=== PATIENT | female | born 1960 | race Two or more races ===

== ENCOUNTER 2019-03-19 09:35 | Inpatient (IN) | payer OTHER ==
[~2019-03-19] VITALS: Ht 165.1 cm; Wt 99.3 kg
[2019-03-19] MEDS ORDERED: BACITRACIN 50000 UNITS/VIAL ONE (09:40)
[2019-03-19] MEDS ORDERED: ACETAMINOPHEN 325 MG TABLET ONE (11:24)
[2019-03-19] MEDS ORDERED: CELECOXIB 100 MG CAPSULE ONE (11:24)
[2019-03-19] MEDS ORDERED: oxyCODONE HCL SR 10MG TAB.SR.12H PO ONE (11:24)
[2019-03-19] MEDS ORDERED: MIDAZOLAM HCL 2 MG/2ML VIAL ONE (14:53)
[2019-03-19] MEDS ORDERED: FENTANYL PF 100MCG/2ML AMPUL ONE (14:53)
[2019-03-19] MEDS ORDERED: MORPHINE SULFATE/PF 10 MG/10ML (1MG/ML) AMPUL ONE (14:53)
[2019-03-19] MEDS ORDERED: BUPIVACAINE 0.5 % PF 150 MG/30 ML VIAL ONE (14:54)
[2019-03-19] MEDS ORDERED: TRANEXAMIC ACID 3,000 MG in SODIUM CHLORIDE IRRIG SOLUTION 70 ML IR ONE (16:30)
[2019-03-19] MEDS ORDERED: HYDROMORPHONE 1 MG/1 ML DISP.SYRIN IV PRN (17:00)
[2019-03-19] MEDS ORDERED: HYDROCODONE/APAP 5/325MG 1 EACH TABLET PO PRN (17:00)
[2019-03-19] MEDS ORDERED: ACETAMINOPHEN 325 MG TABLET PO PRN (17:00)
[2019-03-19] MEDS ORDERED: ONDANSETRON HCL/PF 4 MG/2 ML VIAL IVP PRN (17:00)
[2019-03-19] MEDS ORDERED: DOCUSATE SODIUM 250 MG CAPSULE PO PRN (17:00)
[2019-03-19] MEDS ORDERED: IV 1/2NS 1000 ML 1,000 ML IV PRN (17:00)
[2019-03-19] MEDS ORDERED: NALOXONE HCL 0.4 MG/ML AMPUL ONE (17:16)
[2019-03-19] MEDS ORDERED: KETOROLAC TROMETHAMINE INJ 30 MG/ML VIAL IV ONE (18:00)
[2019-03-19] MEDS ORDERED: diphenhydrAMINE HCL ELIX 25 MG/10 ML UDC PO PRN (18:00)
[2019-03-19] MEDS ORDERED: NALOXONE HCL 0.4 MG/ML AMPUL IV PRN (18:00)
--- NOTE | 2019-03-19 19:30 | NUR ---
ENRIQUE MS OPENING NOTES RECEIVED PATIENT IN BED AWAKE, ALERT AND ORIENTED X4, VERBALLY RESPONSIVE, ABLE TO MAKE NEEDS KNOWN. FAMILY AT BEDSIDE. PATIENT IS S/P LEFT HIP ARTHROPLASTY. BREATHING EVEN AND UNLABORED. NO SOB NOTED. ON 2LPM OXYGEN VIA NC. CURRENTLY WITH NO COMPLAINTS OF PAIN OR DISCOMFORT. NO FACIAL GRIMACING. IV ON LEFT WRIST INTACT AND PATENT. SKIN DRY AND WARM TO TOUCH. AFEBRILE. DRESSING ON THE LEFT HIP DRY AND INTACT. ABDUCTOR PILLOW ON. ALL OTHER NEEDS MET, SAFETY MEASURES IN PLACE. CALL LIGHT WITHIN REACH. WILL CONTINUE TO MONITOR. Addendum: 03/20/19 at 5076 by PAVAN FLETCHER RN CORRECTION: PATIENT IS TELE.
[2019-03-19] MEDS ORDERED: ONDANSETRON HCL/PF 4 MG/2 ML VIAL IVP ONE (19:35)
[2019-03-19 20:00] VITALS: BP 109/67
[2019-03-19] MEDS ORDERED: CLONIDINE HCL 0.1 MG TABLET PO PRN (20:00)
[2019-03-19] MEDS ORDERED: HYDROMORPHONE 1 MG/1 ML DISP.SYRIN SQ PRN (20:00)
[2019-03-19] MEDS ORDERED: diphenhydrAMINE HCL 25 MG CAPSULE PO PRN (20:00)
[2019-03-19] MEDS ORDERED: LORAZEPAM 1 MG TABLET PO PRN (20:00)
[2019-03-19] MEDS ORDERED: MAG HYDROX/AL HYDROX/SIMETH 30 ML UDC PO PRN (20:00)
[2019-03-19] MEDS ORDERED: IV D5/ 0.9% NACL 1,000 ML IV ONE (20:00)
[2019-03-19] MEDS: FAMOTIDINE (20 MG) 20 MG TABLET PO SCH (20:27)
--- NOTE | 2019-03-19 20:30 | NUR ---
HEAD CORRECTION OFFICER NOTES OFFERED PATIENT PAIN MEDICATION BUT PATIENT REFUSED. PER PATIENT, SHE DOES NOT FEEL PAIN RIGHT NOW AND SHE WILL CALL WHEN SHE DOES. INFORMED PATIENT THAT SHE NEEDS TO CALL RN WHEN SHE FEELS EVEN THE SLIGHTEST OF PAIN - PATIENT VERBALIZED UNDERSTANDING. WILL CONTINUE TO MONITOR.
[2019-03-19] MEDS ORDERED: SENNOSIDES 8.6 MG TABLET PO PRN (22:00)
[2019-03-19] MEDS ORDERED: ZOLPIDEM TARTRATE 5 MG TABLET PO PRN (22:00)
--- NOTE | 2019-03-19 22:30 | NUR ---
OBSERVER GRAVITY PROSPECTING NOTES ATTEMPTED TO DO SKIN ASSESSMENT ON PATIENT - NO WOUNDS FOUND OTHER THAN A RIGHT UPPER ARM REDNESS/SCRATCH. PATIENT UNABLE TO TURN TO HER SIDE BECAUSE SHE IS S/P LEFT HIP REPLACEMENT. PER PATIENT, SHE DOES NOT WANT TO MOVE UNTIL SEEN BY PT.
[2019-03-19] MEDS ORDERED: ATEN25TA PO (23:19)
[2019-03-19] MEDS ORDERED: HYDR25TA4 PO (23:19)
[2019-03-20] VITALS: BP 112/63
[2019-03-20] MEDS: ANCEF 1 GM/50 ML D5W IV SCH ×4 (00:18→08:28)
--- NOTE | 2019-03-20 02:16 | NUR ---
RUSSIAN HISTORY PROFESSOR NOTES OFFERED PATIENT PAIN MEDICATION AGAIN BUT PATIENT REFUSED. PER PATIENT, SHE DOES NOT FEEL PAIN RIGHT NOW AND SHE WILL CALL WHEN SHE DOES. WILL CONTINUE TO MONITOR.
[2019-03-20 04:00] VITALS: BP 142/85
--- NOTE | 2019-03-20 06:27 | NUR ---
HEALTH INFORMATION CLERK CLOSING NOTES PATIENT RESTING IN BED. NO ACUTE CHANGES THROUGHOUT SHIFT. BREATHING EVEN AND UNLABORED. NO SOB NOTED. CURRENTLY WITH NO COMPLAINTS OF PAIN OR DISCOMFORT. NO FACIAL GRIMACING. IV ON LEFT WRIST INTACT AND PATENT. DRESSING ON THE LEFT HIP DRY AND INTACT. ABDUCTOR PILLOW ON. ZHOU CATH INTACT AND DRAINING. KEPT CLEAN DRY AND COMFORTABLE. ALL OTHER NEEDS MET, SAFETY MEASURES IN PLACE. CALL LIGHT WITHIN REACH. WILL ENDORSE TO ONCOMING NURSE FOR ROBER.
--- NOTE | 2019-03-20 07:12 | NUR ---
ADJUNCT WRITING INSTRUCTOR NOTES RECEIVED A CALL FROM DR. HARDING AND INQUIRED HOW THE PATIENT WAS THROUGHOUT THE NIGHT. INFORMED DR. HARDING THAT THE PATIENT WAS VERY PLEASANT AND DID NOT ASK FOR PAIN MEDICATION. ALSO INFORMED HIM PATIENT REFUSED PAIN MEDICATION WHEN OFFERED. INFORMED DR. HARDING THAT HE PUT IN A ONE TIME ORDER FOR PATIENT'S D5NS BUT PATIENT INSISTS THAT SHE NEEDS ITS BECAUSE IT HAS MADE HER FEEL BETTER THROUGHOUT OUT THE NIGHT. PER DR. HARDING OK TO CONTINUE TO PATIENT'S IVF: D5NS @ 125ML/HR. ORDER NOTED AND CARRIED OUT.
[2019-03-20] MEDS ORDERED: IV D5/ 0.9% NACL 1,000 ML IV PRN (07:30)
--- NOTE | 2019-03-20 07:34 | NUR ---
SLEEP LAB TECHNICIAN OPENING NOTES RECEIVED PT LAYING IN BED WITH HOB SLIGHTLY ELEVATED. PT IS A/O X4, AFEBRILE. RESPIRATIONS ARE EVEN AND UNLABORED, NOT IN ANY ACUTE DISTRESS NOTED. PT DENIES ANY CHEST PAIN, SOB, N/V. PT STATES SHE IS IN PAIL W/ PL 5/10 BUT DOES NOT WANT PAIN MEDICATION AT THIS TIME. IV SITE TO LEFT WRIST INTACT, NO INFILTRATION NOTED. DRESSING KEPT CLEAN AND DRY. INSTRUCTED PT TO USE CALL LIGHT WHEN ASSISTANCE IS NEEDED, CALL LIGHT IS LEFT WITHIN REACH. WILL MONITOR THROUGHOUT SHIFT FOR CONTINUITY OF CARE.
[2019-03-20 08:00] VITALS: BP 102/58
[2019-03-20] MEDS: DOCUSATE SODIUM 100 MG CAPSULE PO SCH ×2 (08:28→16:40)
[2019-03-20] MEDS: FAMOTIDINE (20 MG) 20 MG TABLET PO SCH ×2 (08:28→21:00)
[2019-03-20 08:35] VITALS: BP 102/58
[2019-03-20] MEDS: ATENOLOL 25 MG TABLET PO SCH (09:00)
[2019-03-20] MEDS: HYDROCHLOROTHIAZIDE 25 MG TABLET PO SCH (09:00)
--- NOTE | 2019-03-20 09:00 | NUR ---
CHAIN PEGGER NOTES-- PT SEEN AND EXAMINED BY ROSA BELLO WITH FACILITY MAINTENANCE MECHANIC STUDENT BEN.
[2019-03-20] MEDS: oxyCODONE IR immediate release 5 MG PO PRN ×3 (09:13→21:35)
[2019-03-20 09:25] LABS: BASOPHILS % (AUTO) 0.4 % (0.0-2.0); EOSINOPHILS % (AUTO) 0.5 % (0.0-6.0); HEMATOCRIT 35 % (33-45); HEMOGLOBIN 11.8 g/dL (11.5-14.8); LYMPHOCYTES # (AUTO) 0.8 /CMM (0.8-4.8); LYMPHOCYTES % (AUTO) 18.3 % (20.0-44.0); MEAN CORPUSCULAR HGB CONC 33 g/dl (31.0-36.0); MEAN CORPUSCULAR VOLUME 84 fL (82-100); MONOCYTES # (AUTO) 0.3 /CMM (0.1-1.30); MONOCYTES % (AUTO) 7.2 % (2.0-12.0); NEUTROPHILS # (AUTO) 3.3 /CMM (1.8-8.9); NEUTROPHILS % (AUTO) 73.6 % (43.0-81.0); PLATELET COUNT (AUTO) 216 /CMM (150-450); WHITE BLOOD COUNT (AUTO) 4.5 K/uL (4.3-11.0)
[2019-03-20 09:32] LABS: CALCIUM, SERUM 7.7 mg/dL (8.5-10.1); CREATININE 0.6 mg/dL (0.6-1.3); POTASSIUM 3.9 mmol/L (3.5-5.1)
[2019-03-20 09:35] LABS: MAGNESIUM 1.7 mg/dL (1.8-2.4); PHOSPHORUS 3.4 mg/dL (2.5-4.9)
--- NOTE | 2019-03-20 11:00 | NUR ---
ETHYLENE COMPRESSOR OPERATOR NOTES-- PT WAS EVALUATED BY PHYSICAL THERAPY.
[2019-03-20 12:00] VITALS: BP 109/62
[2019-03-20] MEDS: Magnesium 1GM/D5W 100ML PREMIX 100 ML IV SCH ×2 (14:39→15:32)
--- NOTE | 2019-03-20 15:22 | NUR ---
MS RN NOTES-- OFFERED PAIN MEDICATION, PT STATED "NO, I CAN TOLERATE IT NOW. I DONT WANT PAIN MEDICINE." WILL CONTINUE TO MONITOR. INSTRUCTED PT TO USE CALL LIGHT WHEN ASSISTANCE IS NEEDED, CALL LIGHT LEFT WITHIN REACH.
--- NOTE | 2019-03-20 15:50 | NUR ---
MS RN NOTES-- PT C/O PAIN 08/07 TO LEFT HIP, ADMINISTERED OXY 5MG. WILL NOTE EFFECTIVENESS.
--- NOTE | 2019-03-20 16:04 | NUR ---
MS RN NOTES-- EXPLAINED TO THE PT THE ZHOU CATH NEEDS TO BE REMOVED. PER PHYSICAL THERAPY, PT CAN USE COMMODE OR WALK TO THE BATHROOM WITH WALKER AND ASSISTANCE. PT MADE AWARE AND AGREED TO REMOVE AT 1900.
[2019-03-20] MEDS: RIVAROXABAN 10 MG TABLET PO SCH (16:40)
--- NOTE | 2019-03-20 19:02 | NUR ---
MS RN NOTES-- INFORMED PT THAT ZHOU CATH NEEDS TO BE REMOVED 1DAY POST OP. PT STATED "MY FAMILY IS HERE, CAN I DO IT LATER BEFORE I GO TO SLEEP?" EXPLAINED THE IMPORTANCE OF REMOVAL. WILL INFORM NICKER NURSE.
--- NOTE | 2019-03-20 19:11 | NUR ---
MS RN CLOSING NOTES ALL DUE MEDS GIVEN, NEEDS MET AND RENDERED. PT IS A/O X4, AFEBRILE. RESPIRATIONS ARE EVEN AND UNLABORED, NOT IN ANY ACUTE DISTRESS NOTED. PT C/O PL 04/07 BUT IS "TRYING TO CONTROL THE PAIN." PT STATED SHE DOES NOT WANT TO TAKE NARCOTICS TOO OFTEN. INFORMED PT TO NOTIFY NURSE BEFORE PAIN INTENSIFIES. NO C/O SOB, N/V. IV SITE TO LEFT WRIST INTACT, NO INFILTRATION NOTED. DRESSING KEPT CLEAN AND DRY. INFORMED MARINE PIPE WELDER NURSE THAT ZHOU NEEDS TO BE REMOVED POST OP DAY 1 PER MD ORDER. REMINDED PT TO USE CALL LIGHT WHEN ASSISTANCE IS NEEDED, CALL LIGHT IS LEFT WITHIN REACH. ENDORSED TO NEXT SHIFT FOR CONTINUITY OF CARE.
--- NOTE | 2019-03-20 19:30 | NUR ---
MS RN NOTES-- PT CHANGED MIND AND WANTS ZHOU CATH OUT. REMOVED ZHOU, PT TOLERATED WELL. INSTRUCTED PT TO USE CALL LIGHT WHEN ASSISTANCE IS NEEDED FOR BLADDER RETRAINING. PT AGREED. ENDORSED TO TRAVELING REPRESENTATIVE NURSE.
--- NOTE | 2019-03-20 19:53 | NUR ---
MS NUNEZ OPENING NOTES: RECEIVED PT ON ROOM AIR AND IS TOLERATING WELL. AND DTR AT BEDSIDE. PT HAS IV AND IS PATENT AND INTACT. PT DOES NOT WANT TO BE CONNECTED TO IV FLUIDS SHE IS DRINKING MORE. INSTRUCTED PT TO USE CALL LIGHT FOR ASSISTANCE. NO SOB NOTED. NO S/S OF DISTRESS. PT HAS BILATERAL SCD PUMPS. BED KEPT IN LOW, LOCKED POSITION, AND SIDE RAILS X 2UP. WILL CONTINUE TO MONITOR PT. Addendum: 03/21/19 at 0226 by RICHY CARABALLO RN L HIP DRESSING IS INTACT AND IS KEPT CLEAN AND DRY.
[2019-03-20 20:00] VITALS: BP 123/63
--- NOTE | 2019-03-20 21:43 | NUR ---
MS RN NOTES: PT REFUSING TO TAKE PEPCID FOR TONIGHT. INFORMED PT THAT SHE HAS BEEN TAKING IT FOR AND THE BENEFITS OF TAKING THE MED. PT STILL REFUSING AFTER EXPLANATION. PT COMPLAINING OF L HIP PAIN 03/07. PT WAS ADMINISTERED OXY IR 5MG PO. WILL CONTINUE TO MONITOR. Addendum: 03/21/19 at 0437 by RICHY CARABALLO RN FOR WHEN SHE HAS BEEN HERE. ALSO EXPLAINED THE BENEFITS OF TAKING THE MED.
--- NOTE | 2019-03-20 21:50 | NUR ---
Met with patient, her spouse and daughter Alma at bedside. Patient is alert, primary language is Chinese but understand some Mohawk. She was admitted for elective surgery pod#1 s/p Left total hip arthroplasty. She lives with her spouse in [place]. Prior to hospitalization, she was ambulatory and independent with adl's. She owns a walker, grab bars and shower chair. Patient is requesting short term rehab in [facility] or [place]. Per [facility] - for dc planning needs > DME or SNF/REHAB - need to contact [facility] [employer] [phone] to coordinate and make arrangement. Patient extruding press adjuster Gegekosta Jones at [place] [phone] claim# [id number] DOI:12/29/2017 and block and case maker Derek Lopez [phone] Addendum: 03/20/19 at 2153 by ETIENNE TANG RN Amended: Links added.
--- NOTE | 2019-03-20 22:04 | NUR ---
MS RN NOTES: PT SAYING THAT SHE GOT HER ZHOU REMOVED TODAY. INFORMED HER THAT SHE NEEDS TO BE CONNECTED TO FLUIDS FOR HER TO PRODUCE SOME URINE. PT UNDERSTOOD AND AGREED. PT CONNECTED TO IV D5NS AT 125ML/HR. WILL CONTINUE TO MONITOR.
--- NOTE | 2019-03-20 22:54 | NUR ---
MS RN NOTES: PT URINATED ON BEDPAN. PT NOW WANTS TO BE DISCONNECTED FROM IV FLUIDS. EXPLAINED TO HER BENEFITS OF BEING CONNECTED TO IVF. PT STILL REFUSING. WILL ATTEMPT AT ANOTHER TIME.
[2019-03-21 04:57] VITALS: BP 142/71
[2019-03-21] MEDS: oxyCODONE IR immediate release 5 MG PO PRN ×3 (04:59→13:33)
--- NOTE | 2019-03-21 05:09 | NUR ---
MS RN NOTES: PT COMPLAINING OF 7/10 L HIP PAIN. PT RECEIVED OXY IR 10MG PO. WILL CONTINUE TO MONITOR.
--- NOTE | 2019-03-21 05:44 | NUR ---
MS RN NOTES: PT FEELS LIKE SHE IS NAUSEOUS. PT WAS ADMINISTERED ZOFRAN 4 MG IV. ALSO PT AGREED TO GET CONNECTED BACK TO FLUIDS. EXPLAINED TO PT THE IMPORTANCE OF BEING CONNECTED TO IV FLUIDS THAT WAS ORDERED FOR HER PT IS VERBALIZING SHE FEELS WEAK.
--- NOTE | 2019-03-21 06:21 | NUR ---
MS RN NOTES: PT ASKED TO PHARMACY CLERK TO COME BACK LATER SHE IS ON THE BSC.
--- NOTE | 2019-03-21 06:29 | NUR ---
MS RN CLOSING NOTES: ALL NEEDS WERE ATTENDED AND ANTICIPATED FOR. PT ASLEEP AT THIS TIME AND RESTING COMFORTABLY. PT HAS IV ON L WRIST #18G AND IS BEING INFUSED WITH IV D5NS AT 125ML/HR. PT REQUESTS FOR SCD PUMP TO ONLY BE PLACED ON L LEG FOR NOW SHE WOULD LIKE TO BE RELIEVED FOR HER RIGHT LEG. BED KEPT IN LOW, LOCKED POSITION, AND SIDE RAILS X 2UP. WILL ENDORSE TO AM NURSE FOR ROBER.
[2019-03-21 07:21] LABS: BASOPHILS % (AUTO) 0.3 % (0.0-2.0); EOSINOPHILS % (AUTO) 0.4 % (0.0-6.0); HEMATOCRIT 34 % (33-45); HEMOGLOBIN 11.4 g/dL (11.5-14.8); LYMPHOCYTES % (AUTO) 16.7 % (20.0-44.0); MEAN CORPUSCULAR HGB CONC 34 g/dl (31.0-36.0); MEAN CORPUSCULAR VOLUME 83 fL (82-100); MONOCYTES # (AUTO) 0.5 /CMM (0.1-1.30); MONOCYTES % (AUTO) 8.4 % (2.0-12.0); NEUTROPHILS # (AUTO) 4.4 /CMM (1.8-8.9); NEUTROPHILS % (AUTO) 74.2 % (43.0-81.0); PLATELET COUNT (AUTO) 210 /CMM (150-450); RED BLOOD CELL COUNT(AUTO) 4.05 MIL/uL (4.0-5.2); WHITE BLOOD COUNT (AUTO) 5.9 K/uL (4.3-11.0)
--- NOTE | 2019-03-21 07:35 | NUR ---
MS RN OPENING NOTES RECEIVED PT LAYING IN BED WITH HOB SLIGHTLY ELEVATED. PT IS A/O X4, AFEBRILE. RESPIRATIONS ARE EVEN AND UNLABORED, NOT IN ANY ACUTE DISTRESS NOTED. PT DENIES ANY CHEST PAIN, SOB, N/V. PT STATES SHE HAS LEFT HIP PAIN W/ PL 02/05 AND STATED THE OXY IR 0MG WAS EFFECTIVE SHE WAS ABLE TO FALL ASLEEP. IV SITE TO LEFT WRIST INTACT, NO INFILTRATION NOTED. DRESSING KEPT CLEAN AND DRY. INSTRUCTED PT TO USE CALL LIGHT WHEN ASSISTANCE IS NEEDED, CALL LIGHT IS LEFT WITHIN REACH. WILL MONITOR THROUGHOUT SHIFT FOR CONTINUITY OF CARE.
[2019-03-21 07:42] LABS: CALCIUM, SERUM 7.8 mg/dL (8.5-10.1); CREATININE 0.6 mg/dL (0.6-1.3); POTASSIUM 4.3 mmol/L (3.5-5.1)
[2019-03-21 08:00] VITALS: BP 148/71
[2019-03-21 08:02] VITALS: BP 148/71
[2019-03-21] MEDS: DOCUSATE SODIUM 100 MG CAPSULE PO SCH ×2 (08:33→16:27)
[2019-03-21] MEDS: ATENOLOL 25 MG TABLET PO SCH (08:33)
[2019-03-21] MEDS: HYDROCHLOROTHIAZIDE 25 MG TABLET PO SCH (08:33)
[2019-03-21] MEDS: FAMOTIDINE (20 MG) 20 MG TABLET PO SCH ×2 (08:33→21:56)
--- NOTE | 2019-03-21 09:00 | NUR ---
MS RN NOTES-- PT SEEN BY MALU MANSFIELD. FIRST DRESSING CHANGE DONE TODAY. PT TOLERATED WELL. NO S/SX OF INFECTION. WILL CONTINUE TO MONITOR.
[2019-03-21] MEDS ORDERED: BISACODYL SUPP (10 MG) 10 MG/SUPP.RECT SUPP.RECT RC ONE (11:16)
[2019-03-21] MEDS ORDERED: BISACODYL SUPP (10 MG) 10 MG/SUPP.RECT SUPP.RECT RC PRN (11:30)
--- NOTE | 2019-03-21 15:28 | NUR ---
MS RN NOTES-- PT ABLE TO TRANSFER WITH ASSISTANCE FROM BED TO COMMODE.
[2019-03-21 16:21] VITALS: BP 116/79
[2019-03-21] MEDS: RIVAROXABAN 10 MG TABLET PO SCH (16:28)
--- NOTE | 2019-03-21 18:48 | NUR ---
MS RN CLOSING NOTES ALL DUE MEDS GIVEN, NEEDS MET AND RENDERED. PT IS A/O X4, AFEBRILE. RESPIRATIONS ARE EVEN AND UNLABORED, NOT IN ANY ACUTE DISTRESS NOTED. NO C/O SOB, N/V. IV SITE TO LEFT WRIST INTACT, NO INFILTRATION NOTED. DRESSING KEPT CLEAN AND DRY. REMINDED PT TO USE CALL LIGHT WHEN ASSISTANCE IS NEEDED, CALL LIGHT IS LEFT WITHIN REACH. WILL ENDORSE TO NEXT SHIFT FOR CONTINUITY OF CARE.
--- NOTE | 2019-03-21 19:20 | NUR ---
RN OPEN NOTES RECEIVED PATIENT AWAKE IN BED. A/OX4. NO SIGNS OF DISTRESS OR DISCOMFORT. BREATHING EVEN AND UNLABORED. IV ACCESS IN L WRIST, PATENT AND INTACT, NO SIGNS OF REDNESS OR INFILTRATION. DRESSING ON L HIP C/D/I. ABDUCTION PILLOW IN PLACE. STATES PAIN IS 6/10 BUT TOLERABLE AT THIS TIME. DENIES ANY PAIN MEDS. BED IN LOW LOCKED POSITION WITH SIDE RAILS X2. CALL LIGHT WITHIN REACH. PATIENT ADVISED TO USE CALL LIGHT FOR ASSISTANCE. WILL CONTINUE TO MONITOR.
[2019-03-21 20:00] VITALS: BP 141/70
--- NOTE | 2019-03-22 06:42 | NUR ---
RN CLOSING NOTES PATIENT RESTING IN BED, EASILY AROUSABLE. A/OX4. NO SIGNS OF DISTRESS OR DISCOMFORT. BREATHING EVEN AND UNLABORED. IV ACCESS IN L WRIST, PATENT AND INTACT, NO SIGNS OF REDNESS OR INFILTRATION. DRESSING ON L HIP C/D/I. ABDUCTION PILLOW IN PLACE. ALL NEEDS MET. NO SIGNIFICANT CHANGES THROUGH THE NIGHT. BED IN LOW LOCKED POSITION WITH SIDE RAILS X3. CALL LIGHT WITHIN REACH. PATIENT ADVISED TO USE CALL LIGHT FOR ASSISTANCE. WILL ENDORSE TO AM SHIFT FOR ROBER.
--- NOTE | 2019-03-22 07:30 | NUR ---
MS RN Opening Note Patient currently resting in bed Semi-Fowlers position, no acute distress noted. Easily arousable. Alert and oriented x4, able to make needs known. Respirations even and unlabored on room air. Dressing noted to the left hip, clean, dry and intact. Abduction pillow in place. Peripheral IV access to the left wrist 18 gauge, intact, patent and saline locked. Safety and fall precautions in place: bed in lowest and locked position, side rails up x2, bed alarm on, call light and personal possessions in reach, room well lit, floor clutter-free. Patient currently clean, dry and comfortable. Bedside commode at bedside. Will continue to monitor and intervene as needed.
[2019-03-22 08:00] VITALS: BP 148/70
[2019-03-22 09:10] VITALS: BP 136/73
[2019-03-22] MEDS: HYDROCHLOROTHIAZIDE 25 MG TABLET PO SCH (09:10)
[2019-03-22] MEDS: FAMOTIDINE (20 MG) 20 MG TABLET PO SCH (09:10)
[2019-03-22] MEDS: ATENOLOL 25 MG TABLET PO SCH (09:10)
[2019-03-22] MEDS: DOCUSATE SODIUM 100 MG CAPSULE PO SCH (09:10)
[2019-03-22] MEDS: oxyCODONE IR immediate release 5 MG PO PRN (12:27)
--- NOTE | 2019-03-22 13:30 | NUR ---
MS ventilating expert Note Patient currently resting in bed Semi-Fowlers position, no acute distress noted. Easily arousable. Vital signs stable, ambulates with assist and front-wheeled walker. Alert and oriented x4, able to make needs known. Respirations even and unlabored on room air. Dressing noted to the left hip, clean, dry and intact. Abduction pillow in place. Peripheral IV access to the left wrist 18 gauge, removed with catheter tip intact. No redness, swelling or bleeding of the site noted. ID bands removed. Refused skin assessment per protocol, as per post-op pain. Educated three times however, still refused upon discharge. Exitcare and discharge instructions given to patient, with daughter present at bedside, verbalized understanding and acknowledged via signature on form. Discharged with all personal belongings, as noted per form, in presence of family. Called report to [facility], given to ENRIQUE Brady. Discharged with EMT personnel in stable condition, family present for discharge.
== END 2019-03-22 13:25 | DRG 470 ==
LOC: DS 09:35 → MED 17:38 → TELE 21:17 → MED 03-20 10:23
PROVIDERS: ADMIT Specialist; ATTEND Registered Nurse
PROC: 0SRB0JZ Replacement of Left Hip Joint with Synthetic Substitute, Open Approach (ICD-10-PCS; principal; 2019-03-19)
DX: M16.12 Unilateral primary osteoarthritis, left hip (principal); D68.59 Other primary thrombophilia; I10 Essential (primary) hypertension; F41.9 Anxiety disorder, unspecified; E66.9 Obesity, unspecified; Z68.36 Body mass index [BMI] 36.0-36.9, adult; Z82.49 Family history of ischemic heart disease and other diseases of the circulatory system; E83.42 Hypomagnesemia; E78.5 Hyperlipidemia, unspecified; E66.01 Morbid (severe) obesity due to excess calories; H54.8 Legal blindness, as defined in USA
CPT/HCPCS: 36415; 80048-TC; 83735-TC; 84100-TC; 85025-TC; 86850-TC; 86921-TC; 87081-TC; 88305-TC; 88311-TC; 94799-TC; 97110-TC; 97116-TC; 97530-TC; A4217; A6209; A6402; G0378; J0690; J1170; J1885; J2250; J2274; J2310; J2405; J2704; J3010; J3475; J3490; J7042; J7060